=== PATIENT | female | born 1940 | race Hispanic/Latino ===

== ENCOUNTER 2016-07-26 09:46 | Outpatient (CLI) | payer MEDICARE ==
--- NOTE | 2016-07-26 14:31 | Mammography Report ---
BILATERAL DIGITAL SCREENING MAMMOGRAM with CAD: 07/26/16 09:46:00 CLINICAL: Routine screening. COMPARISON:07/21/15 FINDINGS: There are bilateral scattered fibroglandular densities. A left outer asymmetry on the CC view requires additional imaging.No architectural distortion or suspicious calcifications.The right breast is negative. IMPRESSION: Left asymmetry requiring further workup. BI-RADS CATEGORY: 0 -- Additional Imaging Evaluation Required RECOMMENDATION: Recall for left mediolateral , exaggerated CC and spot compression CC views and left breast ultrasound if needed. ACR BI-RADS MAMMOGRAPHIC CODES: 0 = Needs additional imaging evaluation; 1 = Negative; 2 = Benign; 3 = Probably benign; 4 = Suspicious; 5 = Malignant; 6 = Known biopsy-proven malignancy COMMENT: 1. Dense breast tissue, i.e., adenosis, fibrocystic changes, etc., may obscure an underlying neoplasm. 2. Approximately 10% of cancers are not detected with mammography. 3. A negative mammography report should not delay biopsy if a clinically suspicious mass is present. COMMENT: Patient follow-up letters are generated via our [employer] application.
== END 2016-07-26 09:47 | disposition home or self-care (01) ==
LOC: SPVWC 09:46
PROVIDERS: ATTEND Obstetrics & Gynecology Gynecology
DX: Z12.31 Encounter for screening mammogram for malignant neoplasm of breast (principal)
CPT/HCPCS: 77067; G0202

== ENCOUNTER 2016-08-10 09:50 | Outpatient (CLI) | payer MEDICARE ==
--- NOTE | 2016-08-10 11:02 | Ultrasound Report ---
LEFT DIGITAL DIAGNOSTIC MAMMOGRAM and LEFT BREAST ULTRASOUND: 08/10/16 09:50:00 CLINICAL: Recalled for asymmetry. COMPARISON:07/26/16 screening FINDINGS: ML, rolled CC, exaggerated CC and spot compression CC views were performed. Satisfactory effacement of asymmetry. No mass or architectural distortion. Ultrasound of the upper outer left breast was performed and demonstrated normal fibroglandular and fatty structures. No mass, cyst or shadowing. IMPRESSION: Negative mammogram and negative left breast ultrasound. BI-RADS CATEGORY: 1 -- Negative RECOMMENDATION: Routine mammographic screening in one year. ACR BI-RADS MAMMOGRAPHIC CODES: 0 = Needs additional imaging evaluation; 1 = Negative; 2 = Benign; 3 = Probably benign; 4 = Suspicious; 5 = Malignant; 6 = Known biopsy-proven malignancy COMMENT: 1. Dense breast tissue, i.e., adenosis, fibrocystic changes, etc., may obscure an underlying neoplasm. 2. Approximately 10% of cancers are not detected with mammography. 3. A negative mammography report should not delay biopsy if a clinically suspicious mass is present. COMMENT: Patient follow-up letters are generated via our [employer] application.
== END 2016-08-10 09:51 | disposition home or self-care (01) ==
LOC: SPVWC 09:50
PROVIDERS: ATTEND Obstetrics & Gynecology Gynecology
DX: N64.89 Other specified disorders of breast (principal)
CPT/HCPCS: 76642; G0206

== ENCOUNTER 2017-08-17 09:32 | Outpatient (CLI) | payer MEDICARE ==
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
== END 2017-08-17 09:33 | disposition home or self-care (01) ==
LOC: SPVWC 09:32
PROVIDERS: ATTEND Obstetrics & Gynecology Gynecology
DX: R92.8 Other abnormal and inconclusive findings on diagnostic imaging of breast (principal)
CPT/HCPCS: 77066; 77067

== ENCOUNTER 2018-09-06 10:31 | Outpatient (CLI) | payer MEDICARE ==
--- NOTE | 2018-09-06 14:44 | Mammography Report ---
BILATERAL DIGITAL SCREENING MAMMOGRAM with CAD and DIGITAL BREAST TOMOSYNTHESIS (DBT) : 09/06/18 CLINICAL: Routine screening. COMPARISON:07/26/16 FINDINGS: The breasts are mostly fatty with a few scattered bilateral fibroglandular densities.Numerous benign oil cysts of the inner right breast. No mass, architectural distortion or suspicious calcifications. IMPRESSION: No mammographic evidence of malignancy. BI-RADS CATEGORY: 2 - - Benign RECOMMENDATION: Routine mammographic screening in one year. COMMENT: Patient follow-up letters are generated by our [employer] application.
== END 2018-09-06 10:32 | disposition home or self-care (01) ==
LOC: SPVWC 10:31
PROVIDERS: ATTEND Obstetrics & Gynecology
DX: Z12.31 Encounter for screening mammogram for malignant neoplasm of breast (principal)
CPT/HCPCS: 77063; 77067